=== PATIENT | female | born 1995 | race American Indian/Alaskan Native ===

== ENCOUNTER 2018-10-03 16:42 | Emergency (ER) | payer MEDICAID, OTHER ==
[2018-10-03] MEDS ORDERED: BOOSTRIX IM ONE (18:00)
[2018-10-03] MEDS ORDERED: MARCAINE 0.5% INFILTRATI ONE (18:00)
[2018-10-03] MEDS ORDERED: CLEOCIN PO ONE (18:00)
[2018-10-03] MEDS ORDERED: ZOFRAN ORAL LIQ PO ONE (18:00)
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
[2018-10-03] MEDS ORDERED: ZOFRAN ODT PO ONE (18:54)
[2018-10-05 12:32] VITALS: BP 160/86
== END 2018-10-03 19:36 | disposition home or self-care (01) ==
LOC: ED 16:42
DX: L02.411 Cutaneous abscess of right axilla (principal); L03.111 Cellulitis of right axilla
CPT/HCPCS: 10060; 90471; 90715; 99282; Q0162

== ENCOUNTER 2019-08-11 07:51 | Emergency (ER) | payer OTHER ==
[2019-08-11] MEDS ORDERED: IBUPROFEN 800 MG TAB PO ONE (09:19)
--- NOTE | 2019-08-11 09:19 | Emergency Department Report ---
Minor Respiratory - HPI Chief Complaint: Sore Throat Stated Complaint: CONGESTION/BODY ACHES/SORE THROAT Time Seen by Provider: 08/11/19 09:18 Duration: 4 Days Pain Location: Throat, Nose, Ear, Chest Severity: moderate Minor Respiratory: Yes Rhinorrhea, Yes Sore Throat, Yes Able to Tolerate Fluids, Yes Cough, Yes Sick Contacts, Yes Fever, No Ear Pain, No Hemoptysis, No Chest Pain, No Shortness of Breath Other History: 24 YO COMES TO ER WITH HER 1 YO WITH SAME SYMPTOMS. STARTED COMMON URI BUT NOW FOR 4 DAYS WITH FEVER AND CHILLS. COUGH. YELLOW SPUTUM. PMH. NONE. PSH. NONE. RX. NONE. LMP END JUL ED Review of Systems ROS: Stated complaint: CONGESTION/BODY ACHES/SORE THROAT Other details as noted in HPI Comment: All other systems reviewed and negative ED Past Medical Hx - Past Medical History Previous Medical History?: No - Surgical History Past Surgical History?: No - Family History Family history: no significant - Social History Smoking Status: Never Smoker - Medications Home Medications: Home Medications Medication Instructions Recorded Confirmed Last Taken Type Amoxicillin [Trimox CAP] 500 mg PO BID #20 capsule 08/11/19 Unknown Rx Benzonatate [Tessalon Perles] 100 mg PO Q12H PRN #20 capsule 08/11/19 Unknown Rx Fluticasone [Flonase] 1 spray NS QDAY #1 bottle 08/11/19 Unknown Rx predniSONE [Deltasone] 20 mg PO DAILY #5 tablet 08/11/19 Unknown Rx Minor Respiratory Exam - Exam General: Vital signs noted. No distress. Alert and acting appropriately. HEENT: Yes Moist Mucous Membranes, No Pharyngeal Erythema, No Pharyngeal Exudates, No Rhinorrhea, No Conjuctival Injection, No Frontal Tenderness, No Maxillary Tenderness Ear: Neither TM Bulge, Neither TM Erythema, Neither EAC Pain, Neither EAC Discharge Neck: Yes Supple, No Adenopathy Lungs: Yes Good Air Exchange, Yes Cough, No Wheezes, No Ronchi, No Stridor, No Labored Respirations, No Retractions, No Use of Accessory Muscles, No Other Abnormal Lung Sounds Heart: Yes Regular, No Murmur Abdomen: Yes Normal Bowel Sounds, No Tenderness, No Peritoneal Signs Skin: No Rash, No Edema Neurologic: Alert and oriented, no deficits. Musculoskeletal: Unremarkable. ED Course Vital Signs 08/11/19 08:06 Temperature 98.5 F Pulse Rate 119 H Respiratory 16 Rate Blood Pressure 162/98 [Right] O2 Sat by Pulse 100 Oximetry ED Medical Decision Making - Medical Decision Making URI NOW 4 DAYS CHILD WITH SAME HR 90 ON EXAM TAKING PO COUGH HERNANDO GRAYT CLEARS WITH COUGH NO PMH MEDICATED WITH MOTRIN DC HOME WITH URI AND PCP FOLLOW UP NON ILL NON TOXIC ON EXAM Vital Signs 08/11/19 08:06 Temperature 98.5 F Pulse Rate 119 H Respiratory 16 Rate Blood Pressure 162/98 [Right] O2 Sat by Pulse 100 Oximetry - Differential Diagnosis URI Critical care attestation.: If time is entered above; I have spent that time in minutes in the direct care of this critically ill patient, excluding procedure time. ED Disposition Clinical Impression: Bronchitis, URTI (acute upper respiratory infection) Disposition: DC- TO HOME OR SELFCARE Is pt being admited?: No Does the pt Need Aspirin: No Condition: Stable Instructions: Acute Bronchitis (ED) Additional Instructions: HYDRATE WELL WITH WATER MED ORDERED MOTRIN OR TYLENOL FOR FEVER FOLLOW UP WITH PCP THIS WEEK TO BE SURE YOU ARE GETTING WELL Prescriptions: predniSONE [Deltasone] 20 mg PO DAILY #5 tablet Fluticasone [Flonase] 1 spray NS QDAY #1 bottle Benzonatate [Tessalon Perles] 100 mg PO Q12H PRN #20 capsule PRN Reason: Cough Amoxicillin [Trimox CAP] 500 mg PO BID #20 capsule Referrals: SEEMA RICHARDSON MD [Primary Care Provider] - 3-5 Days Time of Disposition: 10:24
[2019-08-11 10:43] VITALS: BP 127/73
== END 2019-08-11 10:41 | disposition home or self-care (01) ==
LOC: ED 07:51
DX: J20.9 Acute bronchitis, unspecified (principal); J06.9 Acute upper respiratory infection, unspecified
CPT/HCPCS: 99282

== ENCOUNTER 2019-09-29 20:48 | Emergency (ER) | payer OTHER ==
[2019-09-29 23:29] VITALS: BP 154/101
--- NOTE | 2019-09-29 23:55 | XRay Report ---
EXAMINATION: Right knee radiograph, 3 views CLINICAL INFORMATION: Right knee pain after fall. COMPARISON: None. FINDINGS: There is no evidence of acute fracture or dislocation of the right knee. No focal soft tiss ue swelling is identified. Signer Name: Justyna Rivas MD Signed: 09/29/2019 11:50 PM Workstation Name: [id number]
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
== END 2019-09-30 02:55 | disposition home or self-care (01) ==
LOC: ED 20:48
DX: S80.811A Abrasion, right lower leg, initial encounter (principal); S89.91XA Unspecified injury of right lower leg, initial encounter; R21 Rash and other nonspecific skin eruption; Z79.899 Other long term (current) drug therapy; W23.1XXA Caught, crushed, jammed, or pinched between stationary objects, initial encounter; Y93.89 Activity, other specified; Y92.89 Other specified places as the place of occurrence of the external cause; Y99.8 Other external cause status